=== PATIENT | male | born 1985 | race Two or more races ===

== ENCOUNTER 2023-09-19 15:12 | Inpatient (IN) | payer OTHER ==
[~2023-09-19] VITALS: Ht 172.7 cm; Wt 90.9 kg
[2023-09-19 16:28] LABS: BASOPHILS % (AUTO) 1.1 % (0.0-2.0); EOSINOPHILS % (AUTO) 0.9 % (1.0-6.0); HEMATOCRIT 45.8 % (41-53); HEMOGLOBIN 15.3 g/dL (13.5-17.5); LYMPHOCYTES # (AUTO) 1.1 K/uL (1.0-4.8); MEAN CORPUSCULAR HEMOGLOBIN 30.3 pg (26.0-34.0); MEAN CORPUSCULAR HGB CONC 33.5 G/dL (31.0-37.0); MEAN CORPUSCULAR VOLUME 90 fL (80-100); MONOCYTES # (AUTO) 0.6 K/uL (0.1-1.0); MONOCYTES % (AUTO) 7.7 % (2.0-9.0); NEUTROPHILS # (AUTO) 5.4 K/uL (1.8-7.7); NEUTROPHILS % (AUTO) 75.3 % (40.0-70.0); PLATELET COUNT (AUTO) 342 K/uL (150-450); RED BLOOD CELL COUNT(AUTO) 5.07 MIL/uL (4.50-5.90); RED CELL DISTRIBUTION WIDTH 13.9 % (11.5-14.5); WHITE BLOOD COUNT (AUTO) 7.2 K/uL (4.5-11.0)
[2023-09-19 16:40] LABS: ANION GAP 4 mmol/L (8-16); CALCIUM, TOTAL 9.3 mg/dL (8.8-10.5); CARBON DIOXIDE 31 mmol/L (22-29); CHLORIDE 103 mmol/L (98-107); CREATININE 1.22 mg/dL (0.60-1.30); GLOMERULAR FILTR. RATE CALC > 60 mL/min (>60); GLUCOSE,RANDOM 84 mg/dL (70-110); POTASSIUM 3.9 mmol/L (3.5-5.1); SODIUM SERUM 138 mmol/L (136-145); UREA NITROGEN, BLOOD 12 mg/dL (7-18)
[2023-09-19 16:45] LABS: ALANINE AMINOTRANSFERASE 43 U/L (12-78); ALKALINE PHOSPHATASE 103 U/L (46-116); ASPARTATE AMINOTRANSFERASE 24 U/L (15-37); BILIRUBIN,TOTAL 0.3 mg/dL (0.1-1.0); TOTAL PROTEIN, SERUM 9.1 g/dL (6.4-8.2)
[2023-09-19] MEDS ORDERED: MAGNESIUM HYDROXIDE SUSPENSION 30 ML UDCUP PO PRN (16:45)
[2023-09-19] MEDS ORDERED: CefTRIAXone 1 GM/DEXTROSE 50 ML IV ONE (16:45)
[2023-09-19] MEDS ORDERED: AZITHROMYCIN 500 MG/NS 250 ML IV ONE (16:45)
[2023-09-19 16:49] LABS: COVID AG,FIA SOURCE NASAL SWAB
[2023-09-19 16:56] LABS: B-TYPE NATRIURETIC PEPTIDE 17 pg/mL (0-100)
[2023-09-19 17:10] LABS: INFLUENZA TYPE A NEGATIVE FOR TYPE A (NEGATIVE); INFLUENZA TYPE B NEGATIVE FOR TYPE B (NEGATIVE); SARS-COV2 (COVID) ANTIGEN,FIA Negative (Negative)
[2023-09-19 17:29] LABS: APPEARANCE,URINE CLEAR (CLEAR); BILIRUBIN,URINE NEGATIVE (NEGATIVE); COLOR,URINE LIGHT YELLOW (YELLOW); GLUCOSE, URINE (UA) NEGATIVE (NEGATIVE); KETONES,URINE NEGATIVE (NEGATIVE); LEUKOCYTE ESTERASE ,URINE NEGATIVE (NEGATIVE); NITRATE,URINE NEGATIVE (NEGATIVE); OCCULT BLOOD,URINE NEGATIVE (NEGATIVE); PROTEIN,URINE NEGATIVE (NEGATIVE); SPECIFIC GRAVITIY, URINE 1.016 (1.003-1.030); UROBILINOGEN,URINE <=1.0 mg/dL (<=1.0)
[2023-09-19 17:53] VITALS: BP 120/81; PULSE 71; RESP 18; TEMP 98
[2023-09-19 19:32] VITALS: BP 119/66; PULSE 76; RESP 18; TEMP 98.4
[2023-09-19] MEDS: ZOLPIDEM TARTRATE 5 MG TABLET PO PRN (21:23)
[2023-09-20 05:08] VITALS: BP 105/57; PULSE 69; RESP 18; TEMP 98.4
[2023-09-20] MEDS: FAMOTIDINE 20 MG TABLET PO SCH (08:19)
[2023-09-20 09:07] VITALS: BP 101/57; PULSE 73; RESP 19; TEMP 98.6
[2023-09-20 19:59] VITALS: BP 115/71; PULSE 71; RESP 20; TEMP 98.4
[2023-09-20] MEDS: ZOLPIDEM TARTRATE 5 MG TABLET PO PRN (21:56)
[2023-09-21 04:25] VITALS: BP 98/58; PULSE 64; RESP 18; TEMP 98.2
[2023-09-21 08:05] VITALS: BP 106/60; PULSE 68; RESP 18; TEMP 98.4
[2023-09-21 08:07] LABS: HIV 1-2 SCREEN 4TH GEN W/RFLX Non Reactive (Non Reactive)
[2023-09-21] MEDS: FAMOTIDINE 20 MG TABLET PO SCH (08:48)
[2023-09-21 15:27] VITALS: BP 114/64; PULSE 78; RESP 19; TEMP 98.6
[2023-09-21 19:45] VITALS: BP 124/74; PULSE 78; RESP 20; TEMP 98.4
[2023-09-21] MEDS: ZOLPIDEM TARTRATE 5 MG TABLET PO PRN (20:44)
[2023-09-22 04:58] VITALS: BP 102/62; PULSE 62; RESP 18; TEMP 97.6
[2023-09-22] MEDS: FAMOTIDINE 20 MG TABLET PO SCH (08:52)
[2023-09-22 09:22] VITALS: BP 103/59; PULSE 66; RESP 18; TEMP 97.7
[2023-09-22 15:07] LABS: QUANTIFERON+, Nil Value 0.03 IU/mL; QUANTIFERON+,Mitogen Value 2.15 IU/mL; QUANTIFERON+,TB1 Antigen Value 5.15 IU/mL; QUANTIFERON, TB GOLD PLUS Positive (Negative)
[2023-09-22 17:40] VITALS: BP 117/94; PULSE 91; RESP 20; TEMP 98.3
[2023-09-22 19:40] VITALS: BP 115/65; PULSE 77; RESP 18; TEMP 98.2
[2023-09-22] MEDS: ZOLPIDEM TARTRATE 5 MG TABLET PO PRN (21:09)
[2023-09-23 08:29] VITALS: BP 119/61; PULSE 81; RESP 18; TEMP 98.2
[2023-09-23] MEDS: FAMOTIDINE 20 MG TABLET PO SCH (08:36)
[2023-09-23] MEDS: PYRAZINAMIDE 500 MG TABLET PO SCH (15:14)
[2023-09-23] MEDS: RIFAMPIN 300 MG CAPSULE PO SCH (15:15)
[2023-09-23] MEDS: PYRIDOXINE HCL 50 MG TABLET PO SCH (15:15)
[2023-09-23] MEDS: ISONIAZID 300 MG TABLET PO SCH (15:15)
[2023-09-23] MEDS: ETHAMBUTOL HCL 400 MG TABLET PO SCH (15:15)
[2023-09-23 15:56] VITALS: BP 124/62; PULSE 85; RESP 18; TEMP 98.5
[2023-09-23 20:16] VITALS: BP 117/61; PULSE 68; RESP 18; TEMP 97.8
[2023-09-23] MEDS: ZOLPIDEM TARTRATE 5 MG TABLET PO PRN (20:23)
[2023-09-24 04:48] VITALS: BP 104/59; PULSE 63; RESP 18; TEMP 98.2
[2023-09-24] MEDS: PYRIDOXINE HCL 50 MG TABLET PO SCH (08:54)
[2023-09-24] MEDS: PYRAZINAMIDE 500 MG TABLET PO SCH (08:54)
[2023-09-24] MEDS: ETHAMBUTOL HCL 400 MG TABLET PO SCH (08:54)
[2023-09-24] MEDS: FAMOTIDINE 20 MG TABLET PO SCH (08:54)
[2023-09-24] MEDS: ISONIAZID 300 MG TABLET PO SCH (08:55)
[2023-09-24] MEDS: RIFAMPIN 300 MG CAPSULE PO SCH (08:55)
[2023-09-24 15:51] VITALS: BP 109/62; PULSE 67; RESP 18; TEMP 98.1
[2023-09-24] MEDS: ACETAMINOPHEN 325 MG TABLET PO PRN (18:10)
[2023-09-24 20:24] VITALS: BP 110/53; PULSE 65; RESP 18; TEMP 98.3
[2023-09-24] MEDS: ZOLPIDEM TARTRATE 5 MG TABLET PO PRN (21:27)
[2023-09-25 05:28] VITALS: BP 108/60; PULSE 64; RESP 18; TEMP 97.9
[2023-09-25 08:04] VITALS: BP 105/60; PULSE 62; RESP 18; TEMP 97.7
[2023-09-25] MEDS: ETHAMBUTOL HCL 400 MG TABLET PO SCH (08:20)
[2023-09-25] MEDS: ISONIAZID 300 MG TABLET PO SCH (08:21)
[2023-09-25] MEDS: PYRIDOXINE HCL 50 MG TABLET PO SCH (08:21)
[2023-09-25] MEDS: PYRAZINAMIDE 500 MG TABLET PO SCH (08:21)
[2023-09-25] MEDS: FAMOTIDINE 20 MG TABLET PO SCH (08:21)
[2023-09-25] MEDS: RIFAMPIN 300 MG CAPSULE PO SCH (08:21)
[2023-09-25 15:37] VITALS: BP 112/64; PULSE 68; RESP 18; TEMP 98.2
[2023-09-25 19:32] VITALS: BP 122/67; PULSE 66; RESP 20; TEMP 98.3
[2023-09-25] MEDS: ACETAMINOPHEN 325 MG TABLET PO PRN (19:33)
[2023-09-25] MEDS: ZOLPIDEM TARTRATE 5 MG TABLET PO PRN (19:33)
[2023-09-26 04:21] VITALS: BP 105/60; PULSE 65; RESP 18; TEMP 97.7
[2023-09-26 08:43] VITALS: BP 127/70; PULSE 77; RESP 19; TEMP 98.7
[2023-09-26] MEDS: FAMOTIDINE 20 MG TABLET PO SCH (09:39)
[2023-09-26] MEDS: ISONIAZID 300 MG TABLET PO SCH (09:40)
[2023-09-26] MEDS: PYRIDOXINE HCL 50 MG TABLET PO SCH (09:40)
[2023-09-26] MEDS: ETHAMBUTOL HCL 400 MG TABLET PO SCH (09:40)
[2023-09-26] MEDS: PYRAZINAMIDE 500 MG TABLET PO SCH (09:41)
[2023-09-26] MEDS: RIFAMPIN 300 MG CAPSULE PO SCH (09:41)
[2023-09-26 20:12] VITALS: BP 121/72; PULSE 66; RESP 20; TEMP 98.2
[2023-09-26] MEDS: ZOLPIDEM TARTRATE 5 MG TABLET PO PRN (20:18)
[2023-09-26] MEDS: ACETAMINOPHEN 325 MG TABLET PO PRN (20:21)
[2023-09-27 05:04] VITALS: BP 101/56; PULSE 64; RESP 18; TEMP 97.8
[2023-09-27 08:04] VITALS: BP 116/71; PULSE 77; RESP 19; TEMP 97.9
[2023-09-27] MEDS: PYRIDOXINE HCL 50 MG TABLET PO SCH (09:20)
[2023-09-27] MEDS: ISONIAZID 300 MG TABLET PO SCH (09:20)
[2023-09-27] MEDS: FAMOTIDINE 20 MG TABLET PO SCH (09:20)
[2023-09-27] MEDS: RIFAMPIN 300 MG CAPSULE PO SCH (09:20)
[2023-09-27] MEDS: PYRAZINAMIDE 500 MG TABLET PO SCH (09:20)
[2023-09-27] MEDS: ETHAMBUTOL HCL 400 MG TABLET PO SCH (09:20)
[2023-09-27 16:06] VITALS: BP 115/64; PULSE 66; RESP 20; TEMP 98
[2023-09-27 20:07] VITALS: BP 116/70; PULSE 65; RESP 20; TEMP 98.6
[2023-09-27] MEDS: ZOLPIDEM TARTRATE 5 MG TABLET PO PRN (20:39)
[2023-09-28 04:44] VITALS: BP 111/64; PULSE 66; RESP 20; TEMP 98.4
[2023-09-28 07:34] VITALS: BP 105/60; PULSE 91; RESP 19; TEMP 98.5
[2023-09-28] MEDS: PYRAZINAMIDE 500 MG TABLET PO SCH (08:38)
[2023-09-28] MEDS: FAMOTIDINE 20 MG TABLET PO SCH (08:38)
[2023-09-28] MEDS: ISONIAZID 300 MG TABLET PO SCH (08:38)
[2023-09-28] MEDS: RIFAMPIN 300 MG CAPSULE PO SCH (08:38)
[2023-09-28] MEDS: PYRIDOXINE HCL 50 MG TABLET PO SCH (08:38)
[2023-09-28] MEDS: ETHAMBUTOL HCL 400 MG TABLET PO SCH (08:38)
[2023-09-28 20:12] VITALS: BP 104/66; PULSE 71; RESP 20; TEMP 98.7
[2023-09-28] MEDS: ZOLPIDEM TARTRATE 5 MG TABLET PO PRN (20:42)
[2023-09-29 06:03] VITALS: BP 107/61; PULSE 73; RESP 18; TEMP 98.1
[2023-09-29] MEDS: FAMOTIDINE 20 MG TABLET PO SCH (08:27)
[2023-09-29] MEDS: PYRAZINAMIDE 500 MG TABLET PO SCH (08:28)
[2023-09-29] MEDS: ETHAMBUTOL HCL 400 MG TABLET PO SCH (08:28)
[2023-09-29] MEDS: RIFAMPIN 300 MG CAPSULE PO SCH (08:28)
[2023-09-29 08:57] VITALS: BP 112/68; PULSE 69; RESP 19; TEMP 97.9
[2023-09-29] MEDS: PYRIDOXINE HCL 50 MG TABLET PO SCH (10:19)
[2023-09-29] MEDS: ISONIAZID 300 MG TABLET PO SCH (10:19)
[2023-09-29] MEDS: ACETAMINOPHEN 325 MG TABLET PO PRN (16:39)
[2023-09-29 19:47] VITALS: BP 124/65; PULSE 68; RESP 18; TEMP 98.4
[2023-09-29] MEDS: ZOLPIDEM TARTRATE 5 MG TABLET PO PRN (21:32)
[2023-09-30 04:16] VITALS: BP 116/62; PULSE 57; RESP 18; TEMP 97.3
[2023-09-30 09:10] VITALS: BP 124/63; PULSE 78; RESP 18; TEMP 97.5
[2023-09-30] MEDS: PYRAZINAMIDE 500 MG TABLET PO SCH (09:23)
[2023-09-30] MEDS: ETHAMBUTOL HCL 400 MG TABLET PO SCH (09:23)
[2023-09-30] MEDS: FAMOTIDINE 20 MG TABLET PO SCH (09:24)
[2023-09-30] MEDS: RIFAMPIN 300 MG CAPSULE PO SCH (09:24)
[2023-09-30] MEDS: ISONIAZID 300 MG TABLET PO SCH (09:24)
[2023-09-30] MEDS: PYRIDOXINE HCL 50 MG TABLET PO SCH (09:25)
[2023-09-30 10:32] LABS: BASOPHILS % (AUTO) 0.6 % (0.0-2.0); EOSINOPHILS % (AUTO) 1.1 % (1.0-6.0); HEMATOCRIT 46.1 % (41-53); HEMOGLOBIN 15.7 g/dL (13.5-17.5); LYMPHOCYTES % (AUTO) 14.2 % (22.0-44.0); MEAN CORPUSCULAR HEMOGLOBIN 30.6 pg (26.0-34.0); MEAN CORPUSCULAR VOLUME 90 fL (80-100); MONOCYTES # (AUTO) 0.6 K/uL (0.1-1.0); MONOCYTES % (AUTO) 8.2 % (2.0-9.0); NEUTROPHILS # (AUTO) 5.4 K/uL (1.8-7.7); NEUTROPHILS % (AUTO) 75.9 % (40.0-70.0); PLATELET COUNT (AUTO) 319 K/uL (150-450); RED BLOOD CELL COUNT(AUTO) 5.12 MIL/uL (4.50-5.90); RED CELL DISTRIBUTION WIDTH 14.2 % (11.5-14.5); WHITE BLOOD COUNT (AUTO) 7.2 K/uL (4.5-11.0)
[2023-09-30 10:46] LABS: ANION GAP 4 mmol/L (8-16); CALCIUM, TOTAL 9.4 mg/dL (8.8-10.5); CARBON DIOXIDE 32 mmol/L (22-29); CHLORIDE 104 mmol/L (98-107); CREATININE 1.03 mg/dL (0.60-1.30); GLOMERULAR FILTR. RATE CALC > 60 mL/min (>60); GLUCOSE,RANDOM 93 mg/dL (70-110); POTASSIUM 4.3 mmol/L (3.5-5.1); SODIUM SERUM 140 mmol/L (136-145); UREA NITROGEN, BLOOD 13 mg/dL (7-18)
[2023-09-30 19:31] VITALS: BP 123/64; PULSE 62; RESP 18; TEMP 98.4
[2023-09-30] MEDS: ZOLPIDEM TARTRATE 5 MG TABLET PO PRN (20:04)
[2023-09-30] MEDS: ACETAMINOPHEN 325 MG TABLET PO PRN (20:06)
[2023-10-01 03:59] VITALS: BP 102/61; PULSE 64; RESP 18; TEMP 97.7
[2023-10-01 08:14] VITALS: BP 119/89; PULSE 66; RESP 19; TEMP 98
[2023-10-01] MEDS: ISONIAZID 300 MG TABLET PO SCH (08:31)
[2023-10-01] MEDS: RIFAMPIN 300 MG CAPSULE PO SCH (08:31)
[2023-10-01] MEDS: ETHAMBUTOL HCL 400 MG TABLET PO SCH (08:32)
[2023-10-01] MEDS: PYRIDOXINE HCL 50 MG TABLET PO SCH (08:32)
[2023-10-01] MEDS: PYRAZINAMIDE 500 MG TABLET PO SCH (08:32)
[2023-10-01] MEDS: FAMOTIDINE 20 MG TABLET PO SCH (08:32)
[2023-10-01 20:28] VITALS: BP 123/64; PULSE 62; RESP 20; TEMP 97.7
[2023-10-01] MEDS: ZOLPIDEM TARTRATE 5 MG TABLET PO PRN (21:24)
[2023-10-01] MEDS: ACETAMINOPHEN 325 MG TABLET PO PRN (21:24)
[2023-10-02 04:11] VITALS: BP 112/67; PULSE 70; RESP 20; TEMP 97.7
[2023-10-02] MEDS: PYRAZINAMIDE 500 MG TABLET PO SCH (08:34)
[2023-10-02] MEDS: ETHAMBUTOL HCL 400 MG TABLET PO SCH (08:35)
[2023-10-02] MEDS: RIFAMPIN 300 MG CAPSULE PO SCH (08:35)
[2023-10-02] MEDS: ISONIAZID 300 MG TABLET PO SCH (08:35)
[2023-10-02] MEDS: FAMOTIDINE 20 MG TABLET PO SCH (08:36)
[2023-10-02] MEDS: PYRIDOXINE HCL 50 MG TABLET PO SCH (08:38)
[2023-10-02 20:15] VITALS: BP 119/61; PULSE 61; RESP 18; TEMP 97.8
[2023-10-02] MEDS: ACETAMINOPHEN 325 MG TABLET PO PRN (20:23)
[2023-10-02] MEDS: ZOLPIDEM TARTRATE 5 MG TABLET PO PRN (20:23)
[2023-10-03 04:47] VITALS: BP 115/63; PULSE 64; RESP 18; TEMP 98
[2023-10-03 08:17] VITALS: BP 104/69; PULSE 62; RESP 20; TEMP 97.7
[2023-10-03] MEDS: ETHAMBUTOL HCL 400 MG TABLET PO SCH (08:42)
[2023-10-03] MEDS: PYRAZINAMIDE 500 MG TABLET PO SCH (08:42)
[2023-10-03] MEDS: ISONIAZID 300 MG TABLET PO SCH (08:43)
[2023-10-03] MEDS: RIFAMPIN 300 MG CAPSULE PO SCH (08:43)
[2023-10-03] MEDS: FAMOTIDINE 20 MG TABLET PO SCH (08:43)
[2023-10-03] MEDS: PYRIDOXINE HCL 50 MG TABLET PO SCH (08:48)
[2023-10-03 15:53] VITALS: BP 108/70; PULSE 66; RESP 20; TEMP 97.9
[2023-10-03] MEDS: ACETAMINOPHEN 325 MG TABLET PO PRN (19:50)
[2023-10-03] MEDS: ZOLPIDEM TARTRATE 5 MG TABLET PO PRN (19:50)
[2023-10-03 20:56] VITALS: BP 112/55; PULSE 61; RESP 18; TEMP 97.7
[2023-10-04 04:20] VITALS: BP 102/72; PULSE 60; RESP 18; TEMP 97.9
[2023-10-04 08:15] VITALS: BP 115/67; PULSE 68; RESP 19; TEMP 97.9
[2023-10-04] MEDS: ETHAMBUTOL HCL 400 MG TABLET PO SCH (08:27)
[2023-10-04] MEDS: RIFAMPIN 300 MG CAPSULE PO SCH (08:27)
[2023-10-04] MEDS: PYRAZINAMIDE 500 MG TABLET PO SCH (08:28)
[2023-10-04] MEDS: PYRIDOXINE HCL 50 MG TABLET PO SCH (08:28)
[2023-10-04] MEDS: ISONIAZID 300 MG TABLET PO SCH (08:29)
[2023-10-04] MEDS: FAMOTIDINE 20 MG TABLET PO SCH (08:29)
[2023-10-04 19:58] VITALS: BP 116/76; PULSE 57; RESP 20; TEMP 97.8
[2023-10-04] MEDS: ZOLPIDEM TARTRATE 5 MG TABLET PO PRN (21:53)
[2023-10-04] MEDS: ACETAMINOPHEN 325 MG TABLET PO PRN (21:53)
[2023-10-05 05:03] VITALS: BP 111/63; PULSE 61; RESP 18; TEMP 97.9
[2023-10-05 07:39] VITALS: BP 111/68; PULSE 78; RESP 20
[2023-10-05] MEDS: RIFAMPIN 300 MG CAPSULE PO SCH (08:50)
[2023-10-05] MEDS: ETHAMBUTOL HCL 400 MG TABLET PO SCH (08:50)
[2023-10-05] MEDS: PYRAZINAMIDE 500 MG TABLET PO SCH (08:50)
[2023-10-05] MEDS: FAMOTIDINE 20 MG TABLET PO SCH (08:50)
[2023-10-05] MEDS: PYRIDOXINE HCL 50 MG TABLET PO SCH (08:51)
[2023-10-05] MEDS: ISONIAZID 300 MG TABLET PO SCH (08:51)
[2023-10-05 20:45] VITALS: BP 112/61; PULSE 59; RESP 20; TEMP 98.3
[2023-10-05] MEDS: ACETAMINOPHEN 325 MG TABLET PO PRN (20:59)
[2023-10-05] MEDS: ZOLPIDEM TARTRATE 5 MG TABLET PO PRN (20:59)
[2023-10-06 04:55] VITALS: BP 107/66; PULSE 66; RESP 18; TEMP 98.2
[2023-10-06 08:33] VITALS: BP 111/61; PULSE 72; RESP 18; TEMP 98.7
[2023-10-06] MEDS: RIFAMPIN 300 MG CAPSULE PO SCH (09:24)
[2023-10-06] MEDS: PYRIDOXINE HCL 50 MG TABLET PO SCH (09:25)
[2023-10-06] MEDS: PYRAZINAMIDE 500 MG TABLET PO SCH (09:25)
[2023-10-06] MEDS: ISONIAZID 300 MG TABLET PO SCH (09:25)
[2023-10-06] MEDS: FAMOTIDINE 20 MG TABLET PO SCH (09:25)
[2023-10-06] MEDS: ETHAMBUTOL HCL 400 MG TABLET PO SCH (09:25)
[2023-10-06 16:10] VITALS: BP 112/50; PULSE 70; RESP 19; TEMP 98.5
[2023-10-06 20:08] VITALS: BP 107/54; PULSE 63; RESP 20; TEMP 98.2
[2023-10-07 04:37] VITALS: BP 111/54; PULSE 62; RESP 20; TEMP 98.3
[2023-10-07 07:52] VITALS: BP 114/62; PULSE 68; RESP 20; TEMP 98.2
[2023-10-07] MEDS: PYRAZINAMIDE 500 MG TABLET PO SCH (08:30)
[2023-10-07] MEDS: ISONIAZID 300 MG TABLET PO SCH (08:31)
[2023-10-07] MEDS: FAMOTIDINE 20 MG TABLET PO SCH (08:31)
[2023-10-07] MEDS: RIFAMPIN 300 MG CAPSULE PO SCH (08:31)
[2023-10-07] MEDS: PYRIDOXINE HCL 50 MG TABLET PO SCH (08:31)
[2023-10-07] MEDS: ETHAMBUTOL HCL 400 MG TABLET PO SCH (08:31)
[2023-10-07 15:32] VITALS: BP 118/64; PULSE 70; RESP 20; TEMP 98
[2023-10-07] MEDS ORDERED: 0.9% SODIUM CHLORIDE 5 ML NEB SOLUTION NEB ONE (19:27)
[2023-10-07 20:39] VITALS: BP 104/54; PULSE 55; RESP 18; TEMP 98.3
[2023-10-07] MEDS: ZOLPIDEM TARTRATE 5 MG TABLET PO PRN (21:11)
[2023-10-07] MEDS: ACETAMINOPHEN 325 MG TABLET PO PRN (21:15)
[2023-10-08 04:55] VITALS: BP 108/63; PULSE 65; RESP 18; TEMP 97.5
[2023-10-08] MEDS: PYRIDOXINE HCL 50 MG TABLET PO SCH (08:13)
[2023-10-08] MEDS: PYRAZINAMIDE 500 MG TABLET PO SCH (08:13)
[2023-10-08] MEDS: ETHAMBUTOL HCL 400 MG TABLET PO SCH (08:13)
[2023-10-08] MEDS: ISONIAZID 300 MG TABLET PO SCH (08:13)
[2023-10-08] MEDS: FAMOTIDINE 20 MG TABLET PO SCH (08:13)
[2023-10-08] MEDS: RIFAMPIN 300 MG CAPSULE PO SCH (08:13)
[2023-10-08 09:38] VITALS: BP 108/65; PULSE 74; RESP 19; TEMP 97.5
[2023-10-08 16:13] VITALS: BP 105/61; PULSE 68; RESP 18; TEMP 98.1
[2023-10-08 20:00] VITALS: BP 119/69; PULSE 67; RESP 20; TEMP 98.2
[2023-10-08] MEDS: ACETAMINOPHEN 325 MG TABLET PO PRN (21:33)
[2023-10-08] MEDS: ZOLPIDEM TARTRATE 5 MG TABLET PO PRN (21:33)
[2023-10-09 06:00] VITALS: BP 115/62; PULSE 65; RESP 20; TEMP 98.3
[2023-10-09] MEDS: RIFAMPIN 300 MG CAPSULE PO SCH (08:02)
[2023-10-09] MEDS: ETHAMBUTOL HCL 400 MG TABLET PO SCH (08:02)
[2023-10-09] MEDS: PYRAZINAMIDE 500 MG TABLET PO SCH (08:02)
[2023-10-09] MEDS: FAMOTIDINE 20 MG TABLET PO SCH (08:03)
[2023-10-09] MEDS: ISONIAZID 300 MG TABLET PO SCH (08:03)
[2023-10-09] MEDS: PYRIDOXINE HCL 50 MG TABLET PO SCH (08:03)
[2023-10-09 08:19] VITALS: BP 110/61; PULSE 72; RESP 19; TEMP 98.4
[2023-10-09 20:35] VITALS: BP 119/64; PULSE 56; RESP 18; TEMP 98.6
[2023-10-09] MEDS: ACETAMINOPHEN 325 MG TABLET PO PRN (20:37)
[2023-10-09 20:43] VITALS: PULSE 62
[2023-10-09] MEDS: ZOLPIDEM TARTRATE 5 MG TABLET PO PRN (21:00)
[2023-10-10 04:45] VITALS: BP 103/59; PULSE 60; RESP 18; TEMP 98.2
[2023-10-10] MEDS: ZOLPIDEM TARTRATE 5 MG TABLET PO PRN ×2 (05:22→20:29)
[2023-10-10] MEDS: ETHAMBUTOL HCL 400 MG TABLET PO SCH (07:52)
[2023-10-10] MEDS: RIFAMPIN 300 MG CAPSULE PO SCH (07:52)
[2023-10-10] MEDS: ISONIAZID 300 MG TABLET PO SCH (07:53)
[2023-10-10] MEDS: FAMOTIDINE 20 MG TABLET PO SCH (07:53)
[2023-10-10] MEDS: PYRIDOXINE HCL 50 MG TABLET PO SCH (07:53)
[2023-10-10] MEDS: PYRAZINAMIDE 500 MG TABLET PO SCH (07:53)
[2023-10-10 09:51] VITALS: BP 111/60; PULSE 64; RESP 19; TEMP 98.7
[2023-10-10 19:51] VITALS: BP 113/61; PULSE 61; RESP 18; TEMP 98
[2023-10-10] MEDS: ACETAMINOPHEN 325 MG TABLET PO PRN (20:29)
[2023-10-11 04:06] VITALS: BP 106/58; PULSE 58; RESP 18; TEMP 97.7
[2023-10-11 08:07] VITALS: BP 118/65; PULSE 72; RESP 18; TEMP 98.3
[2023-10-11] MEDS: ISONIAZID 300 MG TABLET PO SCH (09:09)
[2023-10-11] MEDS: FAMOTIDINE 20 MG TABLET PO SCH (09:09)
[2023-10-11] MEDS: ETHAMBUTOL HCL 400 MG TABLET PO SCH (09:09)
[2023-10-11] MEDS: PYRAZINAMIDE 500 MG TABLET PO SCH (09:10)
[2023-10-11] MEDS: RIFAMPIN 300 MG CAPSULE PO SCH (09:10)
[2023-10-11] MEDS: PYRIDOXINE HCL 50 MG TABLET PO SCH (09:19)
[2023-10-11 16:10] LABS: BASOPHILS % (AUTO) 1.1 % (0.0-2.0); EOSINOPHILS % (AUTO) 1.6 % (1.0-6.0); HEMATOCRIT 45.9 % (41-53); LYMPHOCYTES # (AUTO) 1.1 K/uL (1.0-4.8); LYMPHOCYTES % (AUTO) 16.9 % (22.0-44.0); MEAN CORPUSCULAR HEMOGLOBIN 31.5 pg (26.0-34.0); MEAN CORPUSCULAR HGB CONC 34.8 G/dL (31.0-37.0); MEAN CORPUSCULAR VOLUME 90 fL (80-100); MONOCYTES # (AUTO) 0.6 K/uL (0.1-1.0); MONOCYTES % (AUTO) 9.8 % (2.0-9.0); NEUTROPHILS # (AUTO) 4.6 K/uL (1.8-7.7); NEUTROPHILS % (AUTO) 70.6 % (40.0-70.0); PLATELET COUNT (AUTO) 289 K/uL (150-450); RED BLOOD CELL COUNT(AUTO) 5.08 MIL/uL (4.50-5.90); RED CELL DISTRIBUTION WIDTH 14.3 % (11.5-14.5); WHITE BLOOD COUNT (AUTO) 6.6 K/uL (4.5-11.0)
[2023-10-11 16:18] LABS: ANION GAP 9 mmol/L (8-16); CALCIUM, TOTAL 8.9 mg/dL (8.8-10.5); CARBON DIOXIDE 27 mmol/L (22-29); CHLORIDE 105 mmol/L (98-107); CREATININE 1.04 mg/dL (0.60-1.30); GLOMERULAR FILTR. RATE CALC > 60 mL/min (>60); GLUCOSE,RANDOM 85 mg/dL (70-110); POTASSIUM 4.4 mmol/L (3.5-5.1); SODIUM SERUM 141 mmol/L (136-145); UREA NITROGEN, BLOOD 12 mg/dL (7-18)
[2023-10-11 16:24] LABS: ALANINE AMINOTRANSFERASE 26 U/L (12-78); ALBUMIN 3.6 g/dL (3.4-5.0); ALKALINE PHOSPHATASE 105 U/L (46-116); ASPARTATE AMINOTRANSFERASE 19 U/L (15-37); BILIRUBIN,TOTAL 0.4 mg/dL (0.1-1.0); TOTAL PROTEIN, SERUM 8.1 g/dL (6.4-8.2)
[2023-10-11 17:06] VITALS: BP 116/66; PULSE 74; RESP 18; TEMP 98.4
[2023-10-11] MEDS: ACETAMINOPHEN 325 MG TABLET PO PRN (18:24)
[2023-10-11 19:50] VITALS: BP 109/61; PULSE 68; RESP 20; TEMP 98.3
[2023-10-11] MEDS: ZOLPIDEM TARTRATE 5 MG TABLET PO PRN (20:39)
[2023-10-12 04:20] VITALS: BP 105/48; PULSE 62; RESP 18; TEMP 98.4
[2023-10-12 08:04] VITALS: BP 108/68; PULSE 68; RESP 20; TEMP 97.9
[2023-10-12] MEDS: PYRIDOXINE HCL 50 MG TABLET PO SCH (08:45)
[2023-10-12] MEDS: PYRAZINAMIDE 500 MG TABLET PO SCH (08:45)
[2023-10-12] MEDS: RIFAMPIN 300 MG CAPSULE PO SCH (08:45)
[2023-10-12] MEDS: ISONIAZID 300 MG TABLET PO SCH (08:45)
[2023-10-12] MEDS: ETHAMBUTOL HCL 400 MG TABLET PO SCH (08:45)
[2023-10-12] MEDS: FAMOTIDINE 20 MG TABLET PO SCH (08:45)
[2023-10-12] MEDS ORDERED: ETHA100 PO (10:54)
[2023-10-12] MEDS ORDERED: ISON300 PO (10:55)
[2023-10-12] MEDS ORDERED: PYRA500T33 PO (10:56)
[2023-10-12] MEDS ORDERED: PYRI-9 PO (10:57)
[2023-10-12] MEDS ORDERED: RIFA300C36 PO (10:57)
== END 2023-10-12 14:15 | DRG 179 ==
LOC: EMS 15:12 → 6S 17:32 → 6N 18:20 → 6S 09-23 18:56
PROVIDERS: ADMIT Internal Medicine; ATTEND Internal Medicine
DX: A15.0 Tuberculosis of lung (principal); F12.90 Cannabis use, unspecified, uncomplicated; Z20.822 Contact with and (suspected) exposure to COVID-19; Z78.9 Other specified health status; Z87.01 Personal history of pneumonia (recurrent); Z87.891 Personal history of nicotine dependence
CPT/HCPCS: 71046; 80048; 80053; 81003; 83880; 85025; 86480; 87015; 87040; 87081; 87116; 87149; 87188; 87206; 87389; 87556; 87804; 94640; 99285; J0456; J0696; 36415-L1; 36415-TC